=== PATIENT | female | born 1965 | race African-American/Black ===

== ENCOUNTER 2016-09-11 16:53 | Emergency (ER) | payer OTHER ==
--- NOTE | 2016-09-11 18:41 | ER Document Report ---
ED Medical Screen (RME) - General Chief Complaint: Other Stated Complaint: DIZZINESS Time Seen by Provider: 09/11/16 18:37 Mode of Arrival: Wheelchair Information source: Patient TRAVEL OUTSIDE OF THE [place] IN LAST 30 DAYS: No - HPI Patient complains to provider of: weak Onset: This afternoon - pt .states she started feeling weak and "shaky" earlier today. Says this has happened before when her potassium got low - Related Data Allergies/Adverse Reactions: No Known Allergies Allergy (Verified 09/11/16 17:10) Past Medical History - Social History Chew tobacco use (# tins/day): No Frequency of alcohol use: None Drug Abuse: None - Past Medical History Cardiac Medical History: Reports: Hx Hypertension Renal/ Medical History: Denies: Hx Peritoneal Dialysis Musculoskeltal Medical History: Reports Hx Arthritis Surgical Hx: Negative - Immunizations Immunizations up to date: Yes Hx Diphtheria, Pertussis, Tetanus Vaccination: Yes Physical Exam - Vital signs Vitals: Temp Pulse Resp BP Pulse Ox 98.2 F 72 18 148/86 H 94 09/11/16 17:08 09/11/16 17:08 09/11/16 17:08 09/11/16 17:08 09/11/16 17:08 Course - Vital Signs Vital signs: Temp Pulse Resp BP Pulse Ox 98.2 F 72 18 148/86 H 94 09/11/16 17:08 09/11/16 17:08 09/11/16 17:08 09/11/16 17:08 09/11/16 17:08
--- NOTE | 2016-09-11 19:14 | ER Document Report ---
ED Dizziness/Weakness - General Chief Complaint: Other Stated Complaint: DIZZINESS Time Seen by Provider: 09/11/16 18:37 Mode of Arrival: Wheelchair Information source: Patient Notes: 50 yo obese, htn, arthritic knees (steroid shot 3 days ago, [facility] surgery), female c/o shaky, jittery, like something off in my body onset in the afternoon at 1 pm. Riding in vehicle on way home from the store. [place] funny when she woke up this am. Took potassium pill before coming to ER. No headache, ears popping earlier, no sore throat, no cough, no chest pain or SOB, no abd pain, no n/v/d. No rash. No travel outside [place]> Symptoms of "not being control of self" are decreased. Feels like she coud go homne if physical exam and labs are normal. Episode of 5 days vaginal bleeding in July after amenorrhea 17 months, will see Abram Lea next week about this, explained to her that she needs endometrial evaluation since post menopausal bleeding. pt Takes hydrochlorothiazide. TRAVEL OUTSIDE OF THE [place] IN LAST 30 DAYS: No - Related Data Allergies/Adverse Reactions: No Known Allergies Allergy (Verified 09/11/16 17:10) Past Medical History - General Information source: Patient - Social History Smoking Status: Never Smoker Chew tobacco use (# tins/day): No Frequency of alcohol use: None Drug Abuse: None Family History: Reviewed & Not Pertinent Patient has suicidal ideation: No Patient has homicidal ideation: No - Past Medical History Cardiac Medical History: Reports: Hx Hypertension Renal/ Medical History: Denies: Hx Peritoneal Dialysis Musculoskeltal Medical History: Reports Hx Arthritis Surgical Hx: Negative - Immunizations Immunizations up to date: Yes Hx Diphtheria, Pertussis, Tetanus Vaccination: Yes Review of Systems - Review of Systems Constitutional: See HPI EENT: No symptoms reported Cardiovascular: No symptoms reported Respiratory: No symptoms reported Gastrointestinal: No symptoms reported Genitourinary: No symptoms reported Female Genitourinary: No symptoms reported Musculoskeletal: No symptoms reported Skin: No symptoms reported Hematologic/Lymphatic: No symptoms reported Neurological/Psychological: See HPI Physical Exam - Vital signs Vitals: Temp Pulse Resp BP Pulse Ox 98.2 F 72 18 148/86 H 94 09/11/16 17:08 09/11/16 17:08 09/11/16 17:08 09/11/16 17:08 09/11/16 17:08 Interpretation: Normal, Hypoxic - General General appearance: Appears well, Alert Notes: Obese - HEENT Head: Normocephalic, Atraumatic Eyes: Normal Conjunctiva: Normal Pupils: PERRL Mucous membranes: Normal Pharynx: Normal Neck: Supple. No: Lymphadenopathy - Respiratory Respiratory status: No respiratory distress Chest status: Nontender Breath sounds: Normal Chest palpation: Normal - Cardiovascular Rhythm: Regular Heart sounds: Normal auscultation Murmur: No - Abdominal Inspection: Normal Distension: No distension Bowel sounds: Normal Tenderness: Nontender. No: Tender Organomegaly: No organomegaly - Back Back: Normal, Nontender. No: CVA tenderness - Extremities General upper extremity: Normal inspection, Nontender, Normal color, Normal ROM , Normal temperature General lower extremity: Normal inspection, Nontender, Normal color, Normal ROM , Normal temperature, Normal weight bearing. No: Donald's sign - Neurological Neuro grossly intact: Yes Cognition: Normal Orientation: AAOx4 Mike Coma Scale Eye Opening: Spontaneous Gilman Coma Scale Verbal: Oriented Gilman Coma Scale Motor: Obeys Commands Mike Coma Scale Total: 15 Speech: Normal Motor strength normal: LUE, RUE, LLE, RLE Sensory: Normal - Psychological Associated symptoms: Normal affect, Normal mood - Skin Skin Temperature: Warm Skin Moisture: Dry Skin Color: Normal Skin irregularity: negative: Rash Course - Re-evaluation Re-evalutation: 09/11/16 20:08 urine trace bacteria and leukocytes, ekg NSR evaluated by dr lima , Potassium is 3.5 chloride is 96. Patient is to eat a banana a day she stopped. Her to follow-up with her doctor this week and to be checked for the postmenopausal bleeding that she had in July. She more than likely will need an endometrial biopsy. Copies of lab were given to her. - Vital Signs Vital signs: Temp Pulse Resp BP Pulse Ox 98.2 F 72 18 148/86 H 94 09/11/16 17:08 09/11/16 17:08 09/11/16 17:08 09/11/16 17:08 09/11/16 17:08 - Laboratory Result Diagrams: 09/11/16 19:00 09/11/16 19:00 Laboratory results interpreted by me: 09/11/16 09/11/1617 19:00 19:00 19:00 WBC 11.9 H MCH 26.9 L MCHC 31.1 L RDW 14.9 H Sodium 145.3 H Potassium 3.5 L Chloride 96 L Carbon Dioxide 36 H Urine Protein 30 H Urine Urobilinogen 2.0 H Ur Leukocyte Esterase TRACE H Discharge - Discharge Clinical Impression: Postmenopausal bleeding July 2016, Mildly low potassium and chloride Condition: Good Disposition: HOME, SELF-CARE Instructions: Hypokalemia ([facility]), Dizziness ([facility]) Additional Instructions: eat a bannana daily call and schedule appt with Abram Lea for recheck and endometrial evaluation of post menopausal bleeding to er if worse copy of labwork given to you Referrals: ABRAM LEA PA-C [Primary Care Provider] - 09/13/16
[2016-09-11 19:19] LABS: ABSOLUTE BASOPHILS # (AUTO) 0.1 10^3/uL (0.0-0.2); ABSOLUTE EOSINOPHILS # (AUTO) 0.3 10^3/uL (0.0-0.6); ABSOLUTE LYMPHOCYTES (AUTO) 3.6 10^3/uL (0.5-4.7); ABSOLUTE MONOCYTES (AUTO) 0.9 10^3/uL (0.1-1.4); BASOPHILS % (AUTO) 0.8 % (0-2); EOSINOPHILS % (AUTO) 2.1 % (0-6); HEMATOCRIT 44.5 % (36.0-47.0); HEMOGLOBIN 13.8 g/dL (12.0-15.5); HGB HCT DIFFERENCE -3.1; LYMPHOCYTES % (AUTO) 30.3 % (13-45); MEAN CORPUSCULAR HEMOGLOBIN 26.9 pg (27.0-33.4); MEAN CORPUSCULAR HGB CONC 31.1 g/dL (32.0-36.0); MEAN CORPUSCULAR VOLUME 86 fl (80-97); MONOCYTES % (AUTO) 7.6 % (3-13); RED BLOOD COUNT 5.15 10^6/uL (3.72-5.28); RED CELL DISTRIBUTION WIDTH 14.9 % (11.5-14.0); SEGMENTED NEUTROPHILS % (AUTO) 59.2 % (42-78); WHITE BLOOD COUNT 11.9 10^3/uL (4.0-10.5)
[2016-09-11 19:32] LABS: ALANINE AMINOTRANSFERASE 37 U/L (9-52); ALBUMIN 4.2 g/dL (3.5-5.0); ALKALINE PHOSPHATASE 124 U/L (38-126); ANION GAP 13 (5-19); ASPARTATE AMINO TRANSFERASE 17 U/L (14-36); BILIRUBIN,DIRECT 0.3 mg/dL (0.0-0.4); BILIRUBIN,TOTAL 0.4 mg/dL (0.2-1.3); BLOOD UREA NITROGEN 15 mg/dL (7-20); CALCIUM 9.6 mg/dL (8.4-10.2); CARBON DIOXIDE 36 mmol/L (22-30); CHLORIDE 96 mmol/L (98-107); CREATININE RESULT 0.91 mg/dL (0.52-1.25); GLUCOSE 84 mg/dL (75-110); POTASSIUM 3.5 mmol/L (3.6-5.0); SODIUM 145.3 mmol/L (137-145); TOTAL PROTEIN 7.4 g/dL (6.3-8.2)
[2016-09-11 19:49] LABS: APPEARANCE,URINE SLIGHTLY-CLOUDY; BILIRUBIN,URINE NEGATIVE (NEGATIVE); GLUCOSE, URINE NEGATIVE (NEGATIVE); KETONES,URINE NEGATIVE (NEGATIVE); LEUKOCYTE ESTERASE,URINE TRACE (NEGATIVE); NITRITE,URINE NEGATIVE (NEGATIVE); PROTEIN,URINE 30 mg/dL (NEGATIVE); URINE SPECIFIC GRAVITY 1.026
[2016-09-11 20:35] VITALS: BP 141/82
--- NOTE | 2016-09-12 09:25 | EKG REPORT ---
SEVERITY:- BORDERLINE ECG - SINUS RHYTHM BORDERLINE T WAVE ABNORMALITIES : Confirmed by: Yvette Ness 12-Sep-2016 09:24:02
== END 2016-09-11 20:35 | disposition home or self-care (01) ==
LOC: ER 16:53
DX: E87.6 Hypokalemia (principal); R42 Dizziness and giddiness; Z79.899 Other long term (current) drug therapy
CPT/HCPCS: 36415; 80053; 81001; 85025; 87086; 93005; 93010; 99284

== ENCOUNTER → 2016-12-10 | Outpatient (CLI) | payer OTHER ==
--- NOTE | 2016-12-10 11:57 | WOMENS IMAGING REPORT ---
EXAM DESCRIPTION: BILAT SCREENING MAMMO W/CAD COMPLETED DATE/TIME: 12/10/2016 10:37 am REASON FOR STUDY: SCREENING MAMMO Z12.31 ENCNTR SCREEN MAMMOGRAM FOR MALIGNANT NEOPLASM OF [place] COMPARISON: 11/12/2015 TECHNIQUE: Standard craniocaudal and mediolateral oblique views of each breast recorded using Your.MDa l acquisition. LIMITATIONS: None. FINDINGS: Findings present which are benign by mammographic criteria. No suspicious masses, calcifi cations or architectural distortion. Pertinent benign findings: Postsurgical changes from breast reduction. Benign coarse dense dystrophi c calcifications on the right. Read with the assistance of CAD. .[facility] - R2 Cenova Version 1.3 .[facility] - R2 Cenova Version 1.3 .[facility] - R2 Cenova Version 2.4 .[facility] - R2 Cenova Version 2.4 .[facility] - R2 Duty Manager Version 9.2 Benign mammographic findings may include one or more of the following: Smooth masses, popcorn/rim/co arse calcifications, asymmetries, post-procedure changes, and lesions with long-standing stability. IMPRESSION: BENIGN MAMMOGRAPHIC FINDINGS. BIRADS 2 BREAST DENSITY: a. The breasts are almost entirely fatty. BIRAD: 2 BENIGN FINDING(S) RECOMMENDATION: ROUTINE SCREENING COMMENT: The patient has been notified of the results by letter per SA requirements. Additional no tification policies are in place for contacting patient with suspicious or incomplete findings. Quality ID #225: The [employer] recommends an annual screening mammogram for women aged 40 years or over. This facility utilizes a reminder system to ensure that all patients receive reminder letters, and/or direct phone calls for appointments. This includes reminders for routine scr eening mammograms, diagnostic mammograms, or other Breast Imaging Interventions when appropriate. Th is patient will be placed in the appropriate reminder system. The [employer] (ACR) has developed recommendations for screening MRI of the breast s in certain patient populations, to be used in conjunction with mammography. Breast MRI surveillanc e may be appropriate for women with more than 20% lifetime risk of developing breast cancer as deter mined by genetic testing, significant family history of the disease, or history of mantle radiation f or Hodgkins Disease. ACR Practice Guidelines 2008. TECHNICAL DOCUMENTATION: FINDING NUMBER: (1) ASSESSMENT: (1) JOB ID: [id number] [employer]- All Rights Reserved
== END ==
LOC: WI 10:23
PROVIDERS: ATTEND Obstetrics & Gynecology
DX: Z12.31 Encounter for screening mammogram for malignant neoplasm of breast (principal)
CPT/HCPCS: 77067; G0202

== ENCOUNTER 2017-07-06 07:45 | Day surgery (SDC) | payer OTHER ==
[~2017-07-06 07:45] MED LIST: DIPHENHYDRAMINE HCL 50 MG/ML VIAL ONE; EPINEPHRINE INJ 1 MG/10 ML DISP.SYRIN ONE; FLUMAZENIL INJ 0.5 MG/5 ML VIAL ONE; GLUCAGON,HUMAN RECOMB 1 MG INJ ONE; NALOXONE HCL INJ/PF 0.4 MG/1 ML SDV ONE; ONDANSETRON HCL INJ/PF 4 MG/2 ML SDV ONE
[2017-07-06] MEDS: MIDAZOLAM 2 MG/2 ML INJ ONE ×2 (08:08→08:12)
[2017-07-06] MEDS: FENTANYL CITRATE INJ/PF 100 MCG/2 ML AMPUL ONE ×2 (08:10→08:14)
--- NOTE | 2017-07-06 08:55 | Operative Report ---
Operative Report DATE OF SURGERY: 07/06/17 Operative Report: The risks, benefits and alternatives are discussed with the patient in detail Time out is called conscious sedation medications are provided the patient's esophagus, stomach and duodenum are examined retroflexion is performed PREOPERATIVE DIAGNOSIS: dysphagia POSTOPERATIVE DIAGNOSIS: schatzki's ring, s/p breakage. gastritis. Biopsy obtained OPERATION: EGD with biopsy SURGEON: CRISTAL ALSTON ANESTHESIA: Moderate Sedation - 4mg of Versed, 100mcg of Fentanyl. conscious sedation monitoring time is 30mins TISSUE REMOVED OR ALTERED: as noted above COMPLICATIONS: none ESTIMATED BLOOD LOSS: none INTRAOPERATIVE FINDINGS: as noted above PROCEDURE: patient tolerated the procedure well no post procedure complications patient is discharged in good condition Discharge date: 07/06/17 discharge activity: as noted will follow up in 2-3 weeks wait on pathology patient to call office or go to ED if any other issues
[2017-07-06 09:16] VITALS: BP 124/61
== END 2017-07-06 09:25 | disposition home or self-care (01) ==
LOC: END 07:45
PROVIDERS: ATTEND Internal Medicine Gastroenterology
DX: K22.2 Esophageal obstruction (principal); K29.50 Unspecified chronic gastritis without bleeding; K20.9 Esophagitis, unspecified; I10 Essential (primary) hypertension; E78.5 Hyperlipidemia, unspecified; F41.9 Anxiety disorder, unspecified; E66.01 Morbid (severe) obesity due to excess calories; Z68.43 Body mass index [BMI] 50.0-59.9, adult; Z79.1 Long term (current) use of non-steroidal anti-inflammatories (NSAID); Z79.51 Long term (current) use of inhaled steroids
CPT/HCPCS: 43239; 88305 ×2; J2250; J3010; J0171; J1200; J1610; J2310; J2405; J3490

== ENCOUNTER 2017-10-02 11:41 | Emergency (ER) | payer OTHER ==
[2017-10-02] MEDS ORDERED: ASPIRIN 81 MG TABLET, CHEWABLE PO ONE (12:13)
[2017-10-02] MEDS ORDERED: LORAZEPAM INJ 2 MG/1 ML VIAL IV ONE (12:14)
--- NOTE | 2017-10-02 12:18 | ER Document Report ---
ED Cardiac - General Chief Complaint: Chest Pain Stated Complaint: CHEST PAIN Time Seen by Provider: 10/02/17 12:08 Mode of Arrival: Ambulatory Information source: Patient Notes: 51-year-old female presents emergency department with complaints of palpitations. Patient states that these have been ongoing for the last day. She states that she does have a history of anxiety and acid reflux. Patient states that she took her acid reflux medication last night and had some relief of symptoms. She states that she when she woke up today she felt better. She states that within 2 hours of being awake she began having palpitations again. Patient did not take any aspirin or any other medications prior to arrival today. Patient states that her symptoms have been constant for the last 3 hours. Patient denies any chest pain, shortness of breath, nausea, vomiting, diaphoresis. Patient states that she does feel anxious with the palpitations. She states that she has been under a lot of stress as she is trying to close on a new home. Patient states that she does have a history of hypertension but denies a history of diabetes, high cholesterol, coronary artery disease, family history of coronary artery disease. Patient also denies any recent travel, recent surgery, history of DVT or PE, hormone use, history of malignancy. TRAVEL OUTSIDE OF THE [place] IN LAST 30 DAYS: No - HPI Patient complains to provider of: Palpitations Was the onset of pain: Gradual Chest pain location: Substernal Quality of pain: None Chest pain radiation location: None Severity now: None Severity at worst: Mild Pain level currently: Denies Chest pain precipitating factors: At Rest Cardiac risk factors: Hypertension Positive cardiac history: No Associated symptoms: None Exacerbated by: Denies Relieved by: Nothing Similar symptoms previously: Yes Recently seen / treated by doctor: No - Related Data Allergies/Adverse Reactions: No Known Allergies Allergy (Verified 07/05/17 14:30) Past Medical History - Social History Smoking Status: Never Smoker Family History: Reviewed & Not Pertinent - Past Medical History Cardiac Medical History: Reports: Hx Hypertension Denies: Hx Coronary Artery Disease, Hx Heart Attack Pulmonary Medical History: Denies: Hx Asthma, Hx Bronchitis, Hx COPD, Hx Pneumonia Neurological Medical History: Denies: Hx Cerebrovascular Accident, Hx Seizures Renal/ Medical History: Denies: Hx Peritoneal Dialysis Musculoskeltal Medical History: Reports Hx Arthritis Past Surgical History: Denies: Hx Hysterectomy - Immunizations Immunizations up to date: Yes Hx Diphtheria, Pertussis, Tetanus Vaccination: Yes Review of Systems - Review of Systems Constitutional: No symptoms reported EENT: No symptoms reported Cardiovascular: Palpitations Respiratory: No symptoms reported Gastrointestinal: No symptoms reported Genitourinary: No symptoms reported Musculoskeletal: No symptoms reported Skin: No symptoms reported Neurological/Psychological: No symptoms reported -: Yes All other systems reviewed and negative Physical Exam - Vital signs Vitals: Resp Pulse Ox 17 97 10/02/17 12:00 10/02/17 12:00 Interpretation: Normal - Notes Notes: PHYSICAL EXAMINATION: GENERAL: Well-appearing, well-nourished and in no acute distress. HEAD: Atraumatic, normocephalic. EYES: Pupils equal round and reactive to light, extraocular movements intact, conjunctiva are normal. ENT: Nares patent, oropharynx clear without exudates. Moist mucous membranes. NECK: Normal range of motion, supple without lymphadenopathy LUNGS: Breath sounds clear to auscultation bilaterally and equal. No wheezes rales or rhonchi. HEART: Regular rate and rhythm without murmurs ABDOMEN: Soft, nontender, nondistended abdomen. No guarding, no rebound. No masses appreciated. Female : deferred Musculoskeletal: Normal range of motion, no pitting or edema. No cyanosis. NEUROLOGICAL: Cranial nerves grossly intact. Normal speech, normal gait. Normal sensory, motor exams PSYCH: Normal mood, normal affect. SKIN: Warm, Dry, normal turgor, no rashes or lesions noted. Course - Re-evaluation Re-evalutation: 10/02/17 16:19 Labs and imaging obtained. 2 sets of cardiac enzymes and CTA chest done. No acute process identified. Patient states that her symptoms improved with the Ativan. I will discharge the patient home. Patient instructed to follow-up with her primary care physician this week, to take [id number] medication as needed for symptom relief, and to return to the emergency department for worsening symptoms. Patient is agreeable with plan of care. - Vital Signs Vital signs: Temp Pulse Resp BP Pulse Ox 24 H 134/82 H 100 10/02/17 14:26 10/02/17 14:26 10/02/17 14:26 - Laboratory Result Diagrams: 10/02/17 12:33 10/02/17 12:33 Laboratory results interpreted by me: 10/02/17 10/02/17 10/02/17 12:33 12:33 12:33 RDW 14.4 H D-Dimer 0.99 H Sodium 145.2 H Carbon Dioxide 33 H - EKG Interpretation by Me Additional EKG results interpreted by me: 10/02/17 14:37 Ventricular rate 77, Perative 188, QRS duration 90, QTc 356, sinus rhythm, no ischemic changes. Discharge - Discharge Clinical Impression: Heart palpitations Condition: Good Disposition: HOME, SELF-CARE Instructions: Palpitations (Irregular or Rapid Heartrate) ([facility]) Referrals: ABRAM LEA PA-C [Primary Care Provider] - Follow up as needed
--- NOTE | 2017-10-02 12:35 | RADIOLOGY REPORT (SQ) ---
EXAM DESCRIPTION: CHEST SINGLE VIEW COMPLETED DATE/TIME: 10/02/2017 12:23 pm REASON FOR STUDY: chest pain COMPARISON: None. EXAM PARAMETERS: NUMBER OF VIEWS: One view. TECHNIQUE: Single frontal radiographic view of the chest acquired. RADIATION DOSE: NA LIMITATIONS: None. FINDINGS: LUNGS AND PLEURA: No opacities, masses or pneumothorax. No pleural effusion. MEDIASTINUM AND HILAR STRUCTURES: No masses. Contour normal. HEART AND VASCULAR STRUCTURES: Heart normal in size. Normal vasculature. BONES: No acute findings. HARDWARE: None in the chest. OTHER: No other significant finding. IMPRESSION: NO ACUTE RADIOGRAPHIC FINDING IN THE CHEST. TECHNICAL DOCUMENTATION: JOB ID: [id number] [employer]- All Rights Reserved Reading location - IP/workstation name: [email or web address]
[2017-10-02 12:44] LABS: ABSOLUTE BASOPHILS # (AUTO) 0.1 10^3/uL (0.0-0.2); ABSOLUTE EOSINOPHILS # (AUTO) 0.2 10^3/uL (0.0-0.6); ABSOLUTE LYMPHOCYTES (AUTO) 2.7 10^3/uL (0.5-4.7); ABSOLUTE MONOCYTES (AUTO) 0.8 10^3/uL (0.1-1.4); BASOPHILS % (AUTO) 0.7 % (0-2); HEMATOCRIT 39.6 % (36.0-47.0); HEMOGLOBIN 13.2 g/dL (12.0-15.5); LYMPHOCYTES % (AUTO) 27.4 % (13-45); MEAN CORPUSCULAR HEMOGLOBIN 28.7 pg (27.0-33.4); MEAN CORPUSCULAR HGB CONC 33.4 g/dL (32.0-36.0); MEAN CORPUSCULAR VOLUME 86 fl (80-97); MONOCYTES % (AUTO) 7.9 % (3-13); PLATELET COUNT 226 10^3/uL (150-450); RED BLOOD COUNT 4.61 10^6/uL (3.72-5.28); RED CELL DISTRIBUTION WIDTH 14.4 % (11.5-14.0); TOTAL CELLS COUNTED % (AUTO) 100 %; WHITE BLOOD COUNT 9.7 10^3/uL (4.0-10.5)
[2017-10-02 13:03] LABS: ALANINE AMINOTRANSFERASE 22 U/L (9-52); ALBUMIN 3.9 g/dL (3.5-5.0); ALKALINE PHOSPHATASE 96 U/L (38-126); ANION GAP 10 (5-19); ASPARTATE AMINO TRANSFERASE 16 U/L (14-36); BILIRUBIN,DIRECT 0.2 mg/dL (0.0-0.4); BILIRUBIN,TOTAL 0.5 mg/dL (0.2-1.3); BLOOD UREA NITROGEN 13 mg/dL (7-20); CALCIUM 9.2 mg/dL (8.4-10.2); CARBON DIOXIDE 33 mmol/L (22-30); CHLORIDE 102 mmol/L (98-107); CREATINE KINASE 93 U/L (30-135); GLUCOSE 102 mg/dL (75-110); POTASSIUM 3.6 mmol/L (3.6-5.0); SODIUM 145.2 mmol/L (137-145); TOTAL PROTEIN 6.8 g/dL (6.3-8.2)
[2017-10-02 13:15] LABS: CREATINE KINASE MB 0.62 ng/mL (<4.55)
[2017-10-02 13:17] LABS: TROPONIN I < 0.012 ng/mL
--- NOTE | 2017-10-02 16:10 | RADIOLOGY REPORT (SQ) ---
EXAM DESCRIPTION: CTA CHEST COMPLETED DATE/TIME: 10/02/2017 3:45 pm REASON FOR STUDY: palpitiations, COMPARISON: Radiographs. TECHNIQUE: CT scan of the chest performed using helical scanning technique with dynamic intravenous contrast injection. Images reviewed with lung, soft tissue and bone windows. Reconstructed coronal and sagittal MPR images reviewed. Additional 3 dimensional post-processing performed to develop Maximal Intensity Projection images (PA P). All images stored on PACS. All CT scanners at this facility use dose modulation, iterative reconstruction, and/or weight based d osing when appropriate to reduce radiation dose to as low as reasonably achievable (ALARA). [facility]: Dose Right [facility]: CareDose [facility]: Dose Right [facility]: Teradose 4D [facility]: HashCube CONTRAST TYPE AND DOSE: contrast/concentration: Isovue 370.00 mg/ml; Total Contrast Delivered: 86.0 ml; Total Saline Delivered: 97.0 ml RENAL FUNCTION: GFR > 60. RADIATION DOSE: CT Rad equipment meets quality standard of care and radiation dose reduction techniq ues were employed. CTDIvol: 41.1 - 41.3 mGy. DLP: 1503 mGy-cm. . LIMITATIONS: Contrast bolus sub optimal. Body habitus. Motion. FINDINGS: LUNGS AND PLEURA: Elevation right hemidiaphragm. Lungs clear. AORTA AND GREAT VESSELS: Limited contrast bolus. No gross dissection or aneurysm. HEART: No pericardial effusion. No significant coronary artery calcifications. PULMONARY ARTERIES: Limited contrast bolus. Limiting peripheral motion artifact. No gross central c lot. HILAR AND MEDIASTINAL STRUCTURES: No identified masses or abnormal nodes. HARDWARE: None in the chest. UPPER ABDOMEN: No significant findings. Limited exam. THYROID AND OTHER SOFT TISSUES: Thyroid nodules. Normal thyroid size. BONES: No acute or significant finding. 3D MIPS: Confirm above findings. OTHER: No other significant finding. IMPRESSION: Limited study. No gross pulmonary embolus or acute abnormality. COMMENT: Quality ID # [id number]: Final reports with documentation of one or more dose reduction techniques (e.g., Automated exposure control, adjustment of the mA and/or kV according to patient size, use of iterative reconstruction technique) TECHNICAL DOCUMENTATION: JOB ID: [id number] [employer]- All Rights Reserved Reading location - IP/workstation name: [email or web address]
[2017-10-02 16:30] VITALS: BP 151/97
--- NOTE | 2017-10-02 21:18 | EKG REPORT ---
SEVERITY:- BORDERLINE ECG - SINUS RHYTHM BORDERLINE T ABNORMALITIES, INFERIOR LEADS : Confirmed by: Yvette Ness 02-Oct-2017 21:17:57
--- NOTE | 2017-10-02 21:18 | EKG REPORT ---
SEVERITY:- BORDERLINE ECG - SINUS RHYTHM BORDERLINE T ABNORMALITIES, DIFFUSE LEADS : Confirmed by: Yvette Ness 02-Oct-2017 21:17:48
== END 2017-10-02 16:43 | disposition home or self-care (01) ==
LOC: ER 11:41
DX: R00.2 Palpitations (principal); R07.9 Chest pain, unspecified; F41.9 Anxiety disorder, unspecified; K21.9 Gastro-esophageal reflux disease without esophagitis; Z79.899 Other long term (current) drug therapy; I10 Essential (primary) hypertension
CPT/HCPCS: 93005; 99285; 96374; 36415; 82553; 82550; 85025; 80053; 84484; 85379; 71045; 71275; 93010; J2060

== ENCOUNTER 2017-12-04 12:42 | Emergency (ER) | payer OTHER ==
[2017-12-04] MEDS ORDERED: MUPIROCIN 2% OINTMENT 22 GM TP ONE (13:39)
[2017-12-04] MEDS ORDERED: SULFAMETHOXAZOLE/TRIMETHOPRIM 800-160 MG TABLET PO ONE (13:39)
[2017-12-04] MEDS ORDERED: CEPHALEXIN 500 MG CAPSULE PO ONE (13:39)
--- NOTE | 2017-12-04 13:45 | ER Document Report ---
HPI - HPI Patient complains to provider of: draining keloid Onset: Other - several days Pain Level: 4 Context: 51-year-old female complaining of her mid chest keloid draining for several days. Is gotten larger and more tender as usual. The drainage crusty. Associated Symptoms: None Exacerbated by: Denies Relieved by: Denies - ROS ROS below otherwise negative: Yes Systems Reviewed and Negative: Yes All other systems reviewed and negative Past Medical History - General Information source: Patient - Social History Smoking Status: Never Smoker Lives with: Spouse/Significant other Family History: Reviewed & Not Pertinent - Past Medical History Cardiac Medical History: Reports: Hx Hypertension Musculoskeletal Medical History: Reports Hx Arthritis Surgical Hx: Negative - Immunizations Immunizations up to date: Yes Hx Diphtheria, Pertussis, Tetanus Vaccination: Yes Vertical Provider Document - CONSTITUTIONAL Agree With Documented VS: Yes Exam Limitations: No Limitations - INFECTION CONTROL TRAVEL OUTSIDE OF THE [place] IN LAST 30 DAYS: No - DERM Notes: Crusty honey colored crust lateral aspect of the mid chest sternal keloid. The superior Portion of the keloid is tender. Course - Re-evaluation Re-evalutation: 12/04/17 13:43 Patient does not want me to open the drainage location at this time. She wants to try antibiotics and she will see Abram goldstein tomorrow for referral. I told her she can see the plastic surgeon or winding operator about this. She understands that the wound culture is pending. She understands the reasons to come back to the emergency room. No history of MRSA 12/04/17 13:44 - Vital Signs Vital signs: Temp Pulse Resp BP Pulse Ox 98.5 F 81 16 140/74 H 12/04/17 13:07 12/04/17 13:07 12/04/17 13:07 12/04/17 13:07 Discharge - Discharge Clinical Impression: draining chest keloid Condition: Good Disposition: HOME, SELF-CARE Instructions: Acetaminophen, Bactroban Ointment ([facility]), Cephalexin ([facility]), Infections ([facility]), Trimethoprim-Sulfa ([facility]) Additional Instructions: bactroban small amount three times per day Tylenol up to 4000 mg per day for pain Keflex as an antibiotic 4 times a day Septra twice a day as antibiotic See Abram goldstein tomorrow for recheck and referral to dermatology or plastic surgeon Return to the emergency room for increased size pain or drainage or fever Wound culture is pending Prescriptions: Cephalexin Monohydrate [Keflex 500 mg Capsule] 500 mg PO QID #28 capsule Sulfamethoxazole/Trimethoprim [Sulfamethoxazole-Tmp Ds Tablet] 1 each PO BID # 14 tablet Referrals: ABRAM GOLDSTEIN PA-C [Primary Care Provider] - Follow up tomorrow OSVALDO JACK MD [ACTIVE STAFF] - Follow up as needed ÁNGEL DICK DO [ACTIVE STAFF] - Follow up as needed
[2017-12-04 14:16] VITALS: BP 110/69
== END 2017-12-04 14:18 | disposition home or self-care (01) ==
LOC: ER 12:42
DX: L91.0 Hypertrophic scar (principal); I10 Essential (primary) hypertension
CPT/HCPCS: 99283; 87070; 87205; 87077; 87186; J3490

== ENCOUNTER 2018-02-28 10:27 | Emergency (ER) | payer OTHER ==
[2018-02-28 10:32] VITALS: BP 148/101
[2018-02-28] MEDS ORDERED: LIDOCAINE 1% INJ (10 MG/ML) 10 ML MDV INJ ONE (10:47)
[2018-02-28] MEDS ORDERED: METHYLPREDNISOLONE INJ 40 MG/1 ML SDV IM ONE (10:47)
--- NOTE | 2018-02-28 10:48 | ER Document Report ---
ED General - General Chief Complaint: Shoulder Pain Stated Complaint: LEFT SHOULDER PAIN Time Seen by Provider: 02/28/18 10:38 Notes: Patient is a 52-year-old female that presents to the emergency department for chief complaint of left neck pain. Patient states that this pain started about 1 week ago, she did go to see her primary care physician this past Tuesday, was prescribed Flexeril and meloxicam, without improvement of her symptoms, she tried a heating pad which did give some relief, but her pain persisted so she decided to come to the emergency department to have this evaluated. She denies any numbness or tingling or weakness associated with this. It is worse with some ranges of motion of her left shoulder. She denies having any associated chest pain, shortness of breath, nausea, vomiting or abdominal pain. She currently rates the pain as a 4 out of 10, and worse with ranges of motion of the shoulder. Past Medical History: Hypertension Past Surgical History: Denies pertinent major surgical history Social History: Denies tobacco, alcohol or illicit drug use Family History: Reviewed and noncontributory for presenting illness Allergies: Reviewed, see documented allergy list. REVIEW OF SYSTEMS: Other than noted above, the 12 point review of systems was reviewed with the patient and were negative, all pertinent findings are included in the HPI. PHYSICAL EXAMINATION: Vital signs reviewed, nursing noted reviewed. GENERAL: Well-appearing, well-nourished and in no acute distress. HEAD: Atraumatic, normocephalic. EYES: Eyes appear normal, extraocular movements intact, sclera anicteric, conjunctiva are normal. ENT: nares patent, oropharynx clear without exudates. Moist mucous membranes. NECK: Normal range of motion, supple without lymphadenopathy, there is point tenderness over the mid to lateral posterior trapezius, no paraspinal or midline tenderness palpated. LUNGS: Breath sounds clear to auscultation bilaterally and equal. No wheezes rales or rhonchi. HEART: Regular rate and rhythm without murmurs ABDOMEN: Soft, nontender, normoactive bowel sounds. No rebound, guarding, or rigidity. No masses appreciated. EXTREMITIES: Nontender, good range of motion, no pitting or edema. Negative empty can, Valle maneuver of the left shoulder, excellent active and passive range of motion of the shoulder, and internal, external, abduction and abduction , flexion and extension. Does seem to elicit some pain with patient's having her discomfort that she described it by her left lateral neck. NEUROLOGICAL: No focal neurological deficits. Moves all extremities spontaneously Motor and sensory grossly intact on exam. PSYCH: Normal mood, normal affect. SKIN: Warm, Dry, normal turgor, no rashes or lesions noted on exposed skin TRAVEL OUTSIDE OF THE [place] IN LAST 30 DAYS: No - Related Data Allergies/Adverse Reactions: No Known Allergies Allergy (Verified 02/28/18 10:34) Past Medical History - Social History Smoking Status: Never Smoker Chew tobacco use (# tins/day): No Frequency of alcohol use: None Drug Abuse: None Family History: Reviewed & Not Pertinent Patient has suicidal ideation: No Patient has homicidal ideation: No - Past Medical History Cardiac Medical History: Reports: Hx Hypertension Denies: Hx Coronary Artery Disease, Hx Heart Attack Pulmonary Medical History: Denies: Hx Asthma, Hx Bronchitis, Hx COPD, Hx Pneumonia Neurological Medical History: Denies: Hx Cerebrovascular Accident, Hx Seizures Renal/ Medical History: Denies: Hx Peritoneal Dialysis Musculoskeletal Medical History: Reports Hx Arthritis Past Surgical History: Denies: Hx Hysterectomy - Immunizations Immunizations up to date: Yes Hx Diphtheria, Pertussis, Tetanus Vaccination: Yes Physical Exam - Vital signs Vitals: Temp Pulse Resp BP Pulse Ox 98.2 F 82 16 148/101 H 98 02/28/18 10:28 02/28/18 10:28 02/28/18 10:28 02/28/18 10:28 02/28/18 10:28 Course - Re-evaluation Re-evalutation: Patient seen and examined, vital signs reviewed, overall the patient appears well on exam, her shoulder exam was essentially unremarkable, good range of motion with passive and active range of motion, she did have particular tenderness over a trigger point, over the mid posterior trapezius, on the left, which is reproducible for the pain that she has been having. The rest of her exam was grossly unremarkable. PROCEDURE: Left lateral neck trigger point injection Indication: Trigger point tenderness Risks and benefits of the medications of procedure were described to the patient , verbal consent obtained Using a mixture of 1 mL of 1% lidocaine, and 40 mg of Solu-Medrol, the skin was prepped with alcohol, and the mixture was injected into the patient's focal point of tenderness, patient tolerated well, adhesive bandage applied. No complications. 02/28/18 11:04 - Vital Signs Vital signs: Temp Pulse Resp BP Pulse Ox 98.2 F 82 16 148/101 H 98 02/28/18 10:28 02/28/18 10:28 02/28/18 10:28 02/28/18 10:28 02/28/18 10:28 Discharge - Discharge Clinical Impression: Neck pain on left side, Trigger point of neck Condition: Stable Disposition: HOME, SELF-CARE Instructions: Arm Pain, Nonspecific ([facility]), Trigger Point Injection ([facility]) Additional Instructions: You were given a trigger point injection today, with 40 mg of Solu-Medrol, and 1 mL of 1% lidocaine. Please follow-up with your primary care physician, continue to use a heating pad for 20 minutes on a 20 minutes off at least 3 times daily to help with your symptoms. Referrals: ABRAM LEA PA-C [Primary Care Provider] - Follow up in 3-5 days
== END 2018-02-28 11:01 | disposition home or self-care (01) ==
LOC: ER 10:27
DX: M54.2 Cervicalgia (principal); M25.512 Pain in left shoulder; I10 Essential (primary) hypertension
CPT/HCPCS: 99283; 96372; 20552; J2920

== ENCOUNTER 2019-03-18 21:21 | Emergency (ER) | payer OTHER ==
[2019-03-18] MEDS ORDERED: ASPIRIN 81 MG TABLET, CHEWABLE PO ONE (21:30)
--- NOTE | 2019-03-18 21:39 | ER Document Report ---
ED Medical Screen (RME) - General Chief Complaint: Chest Pain Stated Complaint: CHEST PAINS Time Seen by Provider: 03/18/19 21:30 Primary Care Provider: ABRAM LEA PA-C [Primary Care Provider] - Follow up as needed Mode of Arrival: Ambulatory Information source: Patient Notes: 53-year-old female presented to ED for complaint of chest pain about an hour. She states she thinks maybe now it was indigestion because it is getting better. She states it is in the epigastric/chest area. She states that she ate spicy noodles and little spicy chips and had Pepsi within 5 minutes she had sharp pains in the epigastric area. She states these pains stayed until she got to the parking lot and then they got better. Does have a history of reflux and high blood pressure she states she is on lisinopril and she did take her blood pressure medicine. She states she has had chest pain once before long time ago. Lungs clear to auscultation apical pulse is regular and she does have active bowel sounds. She states her chest pain is at a 1 or 2 now. States it was a real tight feeling now it is kind of a wearing off pain I have greeted and performed a rapid initial assessment of this patient. A comprehensive ED assessment and evaluation of the patient, analysis of test results and completion of medical decision making process will be conducted by an additional ED providers. TRAVEL OUTSIDE OF THE [place] IN LAST 30 DAYS: No - Related Data Allergies/Adverse Reactions: No Known Allergies Allergy (Verified 02/28/18 10:34) Past Medical History - Past Medical History Cardiac Medical History: Reports: Hx Hypertension Denies: Hx Coronary Artery Disease, Hx Heart Attack Pulmonary Medical History: Denies: Hx Asthma, Hx Bronchitis, Hx COPD, Hx Pneumonia Neurological Medical History: Denies: Hx Cerebrovascular Accident, Hx Seizures Renal/ Medical History: Denies: Hx Peritoneal Dialysis Musculoskeltal Medical History: Reports Hx Arthritis Past Surgical History: Denies: Hx Hysterectomy - Immunizations Immunizations up to date: Yes Hx Diphtheria, Pertussis, Tetanus Vaccination: Yes Doctor's Discharge - Discharge Referrals: ABRAM LEA PA-C [Primary Care Provider] - Follow up as needed
--- NOTE | 2019-03-18 22:20 | RADIOLOGY REPORT (SQ) ---
EXAM DESCRIPTION: XR CHEST 2 VIEWS COMPLETED DATE/TME: 03/18/2019 21:30 CLINICAL HISTORY: 53 years, Female, chest pain COMPARISON: Prior CT chest from 10/02/2017 NUMBER OF VIEWS: Two TECHNIQUE: Frontal and lateral radiograph are obtained LIMITATIONS: None. FINDINGS: Cardiac and mediastinal contours are normal in appearance. A few scattered nodular opacities project about the lungs on the lateral projection. It is uncertain whether these represent actual pulmonary nodules or multiple vessels en face as these are not corroborated on the frontal projection. Lungs are otherwise clear. No pleural effusion or pneumothorax. IMPRESSION: No acute disease within the chest. Focal nodular opacities projecting about the lungs on the lateral projection, not definitely corroborated on the frontal projection. Underlying pulmonary nodules are possibility. Correlation with nonemergent CT is recommended. copyright 2010 [employer]- All Rights Reserved
[2019-03-18 22:27] LABS: ABSOLUTE EOSINOPHILS # (AUTO) 0.3 10^3/uL (0.0-0.6); ABSOLUTE LYMPHOCYTES (AUTO) 2.9 10^3/uL (0.5-4.7); ABSOLUTE MONOCYTES (AUTO) 0.7 10^3/uL (0.1-1.4); ABSOLUTE NEUT (AUTO) 3.8 10^3/uL (1.7-8.2); BASOPHILS % (AUTO) 0.4 % (0-2); EOSINOPHILS % (AUTO) 3.9 % (0-6); HEMATOCRIT 41.6 % (36.0-47.0); HEMOGLOBIN 13.6 g/dL (12.0-15.5); LYMPHOCYTES % (AUTO) 37.6 % (13-45); MEAN CORPUSCULAR HEMOGLOBIN 28.2 pg (27.0-33.4); MEAN CORPUSCULAR HGB CONC 32.6 g/dL (32.0-36.0); MEAN CORPUSCULAR VOLUME 86 fl (80-97); MONOCYTES % (AUTO) 9.1 % (3-13); PLATELET COUNT 219 10^3/uL (150-450); RED BLOOD COUNT 4.81 10^6/uL (3.72-5.28); RED CELL DISTRIBUTION WIDTH 14.9 % (11.5-14.0); TOTAL CELLS COUNTED % (AUTO) 100 %; WHITE BLOOD COUNT 7.7 10^3/uL (4.0-10.5)
[2019-03-18 22:38] LABS: ALKALINE PHOSPHATASE 99 U/L (38-126); ANION GAP 7 (5-19); ASPARTATE AMINO TRANSFERASE 16 U/L (14-36); BILIRUBIN,DIRECT 0.1 mg/dL (0.0-0.4); BILIRUBIN,TOTAL 0.3 mg/dL (0.2-1.3); BLOOD UREA NITROGEN 13 mg/dL (7-20); CALCIUM 9.3 mg/dL (8.4-10.2); CARBON DIOXIDE 35 mmol/L (22-30); CHLORIDE 100 mmol/L (98-107); GLUCOSE 90 mg/dL (75-110); POTASSIUM 3.5 mmol/L (3.6-5.0)
--- NOTE | 2019-03-18 23:01 | ER Document Report ---
ED General - General Chief Complaint: Chest Pain Stated Complaint: CHEST PAINS Time Seen by Provider: 03/18/19 21:30 Primary Care Provider: ABRAM LEA PA-C [Primary Care Provider] - Follow up as needed Mode of Arrival: Ambulatory Notes: Ms. Palomo is a 53 yo f w/ PMH obesity, HTN, GERD presenting to the ED for epigastric/chest pain. She states that she ate spicy food on noodles as well as spicy chips and drink a soda. She developed severe pain and thought it could be her heart. Prior to leaving her home, she took Mylanta because initially she thought it was GERD but it continued to be quite severe. By time she arrived to the parking lot of the hospital emergency department, the pain had improved significantly. Upon evaluation, the patient states the pain is completely resolved. Patient denies any smoking history, family history of early cardiac , diabetes, hyperlipidemia or previous stents. Patient denies any dyspnea upon exertion. TRAVEL OUTSIDE OF THE [place] IN LAST 30 DAYS: No - Related Data Allergies/Adverse Reactions: No Known Allergies Allergy (Verified 02/28/18 10:34) Home Medications: Lisinopril. Amlodipine Past Medical History - General Information source: Patient - Social History Smoking Status: Never Smoker Family History: Reviewed & Not Pertinent Patient has suicidal ideation: No Patient has homicidal ideation: No - Past Medical History Cardiac Medical History: Reports: Hx Hypertension Denies: Hx Coronary Artery Disease, Hx Heart Attack Pulmonary Medical History: Denies: Hx Asthma, Hx Bronchitis, Hx COPD, Hx Pneumonia Neurological Medical History: Denies: Hx Cerebrovascular Accident, Hx Seizures Renal/ Medical History: Denies: Hx Peritoneal Dialysis Musculoskeletal Medical History: Reports Hx Arthritis Past Surgical History: Denies: Hx Hysterectomy - Immunizations Immunizations up to date: Yes Hx Diphtheria, Pertussis, Tetanus Vaccination: Yes Review of Systems - Review of Systems Constitutional: See HPI EENT: No symptoms reported Cardiovascular: See HPI Respiratory: See HPI Gastrointestinal: No symptoms reported Genitourinary: No symptoms reported Female Genitourinary: No symptoms reported Musculoskeletal: No symptoms reported Skin: No symptoms reported Hematologic/Lymphatic: No symptoms reported Neurological/Psychological: No symptoms reported Physical Exam - Vital signs Vitals: Temp Pulse Resp BP Pulse Ox 98.3 F 74 16 146/89 H 100 03/18/19 21:40 03/18/19 21:40 12/08/19 21:40 03/18/19 21:40 03/18/19 21:40 Interpretation: Hypertensive - General General appearance: Appears well, Alert - HEENT Head: Normocephalic, Atraumatic Eyes: Normal Pupils: PERRL - Respiratory Respiratory status: No respiratory distress Chest status: Nontender Breath sounds: Normal Chest palpation: Normal - Cardiovascular Rhythm: Regular Heart sounds: Normal auscultation Murmur: No - Abdominal Inspection: Normal Distension: No distension Bowel sounds: Normal Tenderness: Nontender. No: Guarding, Rebound Organomegaly: No organomegaly - Back Back: Normal, Nontender - Extremities General upper extremity: Normal inspection, Nontender, Normal color, Normal ROM, Normal temperature General lower extremity: Normal inspection, Nontender, Normal color, Normal ROM, Normal temperature, Normal weight bearing. No: Donald's sign - Neurological Neuro grossly intact: Yes Cognition: Normal Orientation: AAOx4 [place] Com[place] Scale Eye Opening: Spontaneous [place] Coma Scale Verbal: Oriented [place] Coma Scale Motor: Obeys Commands [place] Coma Scale Total: 15 Speech: Normal Motor strength normal: LUE, RUE, LLE, RLE Sensory: Normal - Psychological Associated symptoms: Normal affect, Normal mood - Skin Skin Temperature: Warm Skin Moisture: Dry Skin Color: Normal Course - Re-evaluation Re-evalutation: Patient is generally well-appearing and nontoxic. Initial vitals notable for mildly elevated blood pressure. EKG is nonischemic. Differential diagnosis includes GERD, anxiety, ACS (less likely), malignancy 03/19/19 00:27 Upon my evaluation, the patient's pain is completely resolved. Initial labs including CBC, troponin and CMP all within normal limits. EKG is nonischemic. However the patient's chest x-ray, the lateral shows evidence of pulmonary nodules. Given that the patient does not have any known history of nodules, radiology had recommended CT for further evaluation. 03/19/19 01:03 CT is negative for any pulmonary nodules. Plan to repeat troponin. If ne gative, patient will discharge with likely diagnosis of GERD. 03/19/19 01:39 Repeat troponin negative. Patient will be discharged with return precautions. Most likely this was GERD given the patient's consumption of multiple spicy foods in addition to the soda. Patient given written instructions to use acid environmental engineering technician such as famotidine or omeprazole regularly. - Vital Signs Vital signs: Temp Pulse Resp BP Pulse Ox 98.3 F 74 22 H 166/87 H 97 03/18/19 21:40 03/18/19 21:40 03/19/19 00:06 03/19/19 00:06 03/19/19 00:06 - Laboratory Result Diagrams: 03/18/19 21:55 03/18/19 21:55 Laboratory results interpreted by me: 03/18/19 03/18/19 03/18/19 21:55 21:55 21:55 RDW 14.9 H Potassium 3.5 L Carbon Dioxide 35 H Leukocyte Esterase Rfl SMALL H - EKG Interpretation by Me EKG shows normal: Sinus rhythm, [place], QRS Complexes, ST-T Waves Rate: Normal Rhythm: NSR Heart block present: 1st Degree When compared to previous EKG there are: No significant change Discharge - Discharge Clinical Impression: GERD (gastroesophageal reflux disease) Qualifiers: Esophagitis presence: with esophagitis Qualified Code(s): K21.0 - Gastro- esophageal reflux disease with esophagitis Condition: Good Disposition: HOME, SELF-CARE Instructions: Antacid Therapy ([facility]), Reflux Disease (GERD) ([facility]), Prilosec (Acid Pump Inhibitor) ([facility]) Additional Instructions: I would recommend that you start using acid reducing medication such as Prilosec or famotidine regularly. I would also recommend that you avoid spicy foods or foods high in acidity such as tomatoes, citrus products or tomato sauce. Fol low-up with your primary care doctor as needed. If you develop chest pain, shortness of breath, or any other concerning symptoms, return to the ED for further evaluation. Referrals: ABRAM LEA PA-C [Primary Care Provider] - Follow up as needed
--- NOTE | 2019-03-18 23:42 | EKG REPORT ---
SEVERITY:- BORDERLINE ECG - SINUS RHYTHM BORDERLINE T WAVE ABNORMALITIES : Confirmed by: Suki Rollins MD 18-Mar-2019 23:42:17
[2019-03-19 00:19] LABS: APPEARANCE,URINE CLEAR; BILIRUBIN,URINE NEGATIVE (NEGATIVE); COLOR,URINE YELLOW; GLUCOSE, URINE NEGATIVE (NEGATIVE); KETONES,URINE NEGATIVE (NEGATIVE); PROTEIN,URINE NEGATIVE (NEGATIVE); URINE SPECIFIC GRAVITY 1.011; UROBILINOGEN,URINE NEGATIVE mg/dL (<2.0)
--- NOTE | 2019-03-19 00:20 | RADIOLOGY REPORT (SQ) ---
EXAM DESCRIPTION: CT CHEST WITH IV CONTRAST COMPLETED DATE/TME: 03/18/2019 22:32 CLINICAL HISTORY: 53 years, Female, pulmonary nodules COMPARISON: 10/02/17. TECHNIQUE: Contiguous axial CT images of the chest. Intravenous contrast: Present. DLP 928 mGy-cm. Images stored on PACS. All CT scanners at this facility use dose modulation, iterative reconstruction, and/or weight based dosing when appropriate to reduce radiation dose to as low as reasonably achievable (ALARA). [facility]: Dose Right [facility]: CareDose [facility]: Dose Right [facility]: Teradose 4D [facility]: [place] LIMITATIONS: None. FINDINGS: Upper abdomen: Partially imaged. The spleen has a 2.1 cm cyst. Thoracic aorta: Unremarkable. Heart: Unremarkable. Mediastinum: No pathologic sized middle mediastinal lymphadenopathy. Tracheobronchial tree: Unremarkable. Lungs: Lobar consolidation: Negative. Pleural effusion: Negative. Pneumothorax: Negative. Other: Negative. Bones: Unremarkable. IMPRESSION: No CT evidence of acute process in the chest. TECHNICAL DOCUMENTATION: Quality ID # [id number]: Final reports with documentation of one or more dose reduction techniques (e.g., Automated exposure control, adjustment of the mA and/or kV according to patient size, use of iterative reconstruction technique) copyright 2010 [employer]- All Rights Reserved
[2019-03-19 02:04] VITALS: BP 142/83
== END 2019-03-19 01:54 | disposition home or self-care (01) ==
LOC: ER 21:21
DX: K21.0 Gastro-esophageal reflux disease with esophagitis (principal); R07.9 Chest pain, unspecified; R10.13 Epigastric pain; I10 Essential (primary) hypertension
CPT/HCPCS: 93005; 99285; 36415; 87086; 83735; 85025; 80053; 81001; 84484; 71046; 71260; 93010; A9270

== ENCOUNTER 2019-03-29 05:13 | Emergency (ER) | payer OTHER ==
[2019-03-29 06:02] LABS: ABSOLUTE EOSINOPHILS # (AUTO) 0.3 10^3/uL (0.0-0.6); ABSOLUTE LYMPHOCYTES (AUTO) 2.3 10^3/uL (0.5-4.7); ABSOLUTE MONOCYTES (AUTO) 0.6 10^3/uL (0.1-1.4); ABSOLUTE NEUT (AUTO) 4.5 10^3/uL (1.7-8.2); BASOPHILS % (AUTO) 0.6 % (0-2); EOSINOPHILS % (AUTO) 3.7 % (0-6); HEMATOCRIT 42.1 % (36.0-47.0); HEMOGLOBIN 13.8 g/dL (12.0-15.5); LYMPHOCYTES % (AUTO) 29.9 % (13-45); MEAN CORPUSCULAR HEMOGLOBIN 28.2 pg (27.0-33.4); MEAN CORPUSCULAR HGB CONC 32.8 g/dL (32.0-36.0); MEAN CORPUSCULAR VOLUME 86 fl (80-97); MONOCYTES % (AUTO) 8.3 % (3-13); PLATELET COUNT 233 10^3/uL (150-450); RED BLOOD COUNT 4.89 10^6/uL (3.72-5.28); RED CELL DISTRIBUTION WIDTH 14.9 % (11.5-14.0); SEGMENTED NEUTROPHILS % (AUTO) 57.5 % (42-78); TOTAL CELLS COUNTED % (AUTO) 100 %; WHITE BLOOD COUNT 7.8 10^3/uL (4.0-10.5)
[2019-03-29 06:21] LABS: ALKALINE PHOSPHATASE 109 U/L (38-126); ANION GAP 6 (5-19); ASPARTATE AMINO TRANSFERASE 15 U/L (14-36); BILIRUBIN,DIRECT 0.1 mg/dL (0.0-0.4); BILIRUBIN,TOTAL 0.4 mg/dL (0.2-1.3); BLOOD UREA NITROGEN 14 mg/dL (7-20); CALCIUM 8.7 mg/dL (8.4-10.2); CARBON DIOXIDE 33 mmol/L (22-30); CHLORIDE 102 mmol/L (98-107); CREATINE KINASE 87 U/L (30-135); GLUCOSE 103 mg/dL (75-110); POTASSIUM 3.5 mmol/L (3.6-5.0); TOTAL PROTEIN 7.3 g/dL (6.3-8.2)
[2019-03-29 06:36] LABS: TROPONIN I < 0.012 ng/mL
[2019-03-29] MEDS ORDERED: LIDOCAINE 2% VISCOUS SOLN 20 ML UDCUP PO ONE (07:02)
[2019-03-29] MEDS ORDERED: MAG HYDROX/AL HYDROX/SIMETH SUSP 30 ML UDCUP PO ONE (07:02)
--- NOTE | 2019-03-29 07:30 | ER Document Report ---
Entered by ANITRA CARUSO SCRIBE 03/29/19 0702 Acting as scribe for:CRUZITO JUAREZ MD ED General - General Chief Complaint: Chest Pain Stated Complaint: CHEST PAIN Time Seen by Provider: 03/29/19 06:46 Primary Care Provider: ABRAM LEA PA-C [Primary Care Provider] - Follow up as needed Mode of Arrival: Ambulatory Information source: Patient Notes: This 53 year old female patient presents to the ED today with complaints of reproducible chest pain that began around 4:00 AM. Patient describes the pain as a tightness in her chest that feels similar to the symptoms she experienced x2 weeks ago. Patient reports that she was prescribed some pills that provided no relief and that she saw her PCP x1 day ago. Patient also reports upper abdominal pain. Was recently prescribed famotidine 20 mg 3 times daily, and omeprazole 40 mg daily. TRAVEL OUTSIDE OF THE [place] IN LAST 30 DAYS: No - Related Data Allergies/Adverse Reactions: No Known Allergies Allergy (Verified 02/28/18 10:34) Home Medications: lisinopril, coreg CR, amlodipine Past Medical History - General Information source: Patient - Social History Smoking Status: Never Smoker Cigarette use (# per day): No Frequency of alcohol use: Rare Family History: Reviewed & Not Pertinent Patient has suicidal ideation: No Patient has homicidal ideation: No - Past Medical History Cardiac Medical History: Reports: Hx Hypertension Musculoskeletal Medical History: Reports Hx Arthritis - Immunizations Immunizations up to date: Yes Hx Diphtheria, Pertussis, Tetanus Vaccination: Yes Review of Systems - Review of Systems Constitutional: No symptoms reported EENT: No symptoms reported Cardiovascular: See HPI, Chest pain - reproducible chest pain Respiratory: No symptoms reported Gastrointestinal: See HPI, Abdominal pain Genitourinary: No symptoms reported Female Genitourinary: No symptoms reported Musculoskeletal: No symptoms reported Skin: No symptoms reported Hematologic/Lymphatic: No symptoms reported Neurological/Psychological: No symptoms reported -: Yes All other systems reviewed and negative Physical Exam - Vital signs Vitals: Temp Pulse Resp BP Pulse Ox 97.7 F 74 22 H 148/86 H 95 03/29/19 05:31 03/29/19 05:31 03/29/19 05:31 03/29/19 05:31 03/29/19 05:31 Interpretation: Normal - General General appearance: Alert In distress: None - HEENT Head: Normocephalic, Atraumatic Eyes: Normal Pupils: PERRL - Respiratory Respiratory status: No respiratory distress Chest status: Nontender, Other - keloid on her distal sternal region Breath sounds: Normal Chest palpation: Normal - Cardiovascular Rhythm: Regular Heart sounds: Normal auscultation Murmur: No - Abdominal Inspection: Morbidly Obese Distension: No distension Bowel sounds: Normal Tenderness: Tender - epigastric tenderness with palpation Organomegaly: No organomegaly - Back Back: Normal, Nontender - Extremities General upper extremity: Normal inspection General lower extremity: Normal inspection - Neurological Neuro grossly intact: Yes - Psychological Associated symptoms: Normal affect, Normal mood - Skin Skin Temperature: Warm Skin Moisture: Dry Skin Color: Normal Course - Re-evaluation Re-evalutation: 03/29/19 08:15 The GI cocktail did make the epigastric chest discomfort go away. I had a long discussion with the patient about GERD, presentations, management, prevention. Things to eat and drink, things not to eat and drink. Elevating the head of the bed either with blocks or with foam wedge under the mattress. She seems to have very little insight into these problems. She is morbidly obese, and lays almost flat on the stretcher which cannot be helping the reflux problem. - Vital Signs Vital signs: Temp Pulse Resp BP Pulse Ox 97.7 F 74 13 142/84 H 100 03/29/19 05:31 03/29/19 05:31 03/29/19 07:01 03/29/19 07:01 03/29/19 07:01 - Laboratory Result Diagrams: 03/29/19 05:32 03/29/19 05:32 Laboratory results interpreted by me: 03/29/19 03/29/19 05:32 05:32 RDW 14.9 H Potassium 3.5 L Carbon Dioxide 33 H - EKG Interpretation by Sc EKG shows normal: Sinus rhythm, [place], Intervals, QRS Complexes. abnormal: ST-T Waves - Borderline inf T abnl's Rate: Normal - 64 Rhythm: NSR When compared to previous EKG there are: No significant change Discharge - Discharge Clinical Impression: GERD (gastroesophageal reflux disease) Qualifiers: Esophagitis presence: esophagitis presence not specified Qualified Code(s): K21.9 - Gastro-esophageal reflux disease without esophagitis Condition: Stable Disposition: HOME, SELF-CARE Additional Instructions: Reflux Disease (GERD) Gastro-Esophageal Reflux Disease (GERD) is caused by stomach acid refluxing back up into the esophagus. The valve at the end of the esophagus may be weak. This is common in persons with a hiatal hernia. GERD symptoms can include indigestion, chest pain, heartburn, or food "sticking." Certain foods, alcohol, and aspirin can make GERD worse. Treatment depends on the severity. Usually, antacids or acid-suppressing medicines are used. When the esophagus is acutely inflamed, the physician will often prescribe membrane-protective drugs such as Carafate. Some patients benefit from medication such as Reglan that tightens the valve at the top of the stomach. Avoid those foods that bring on your symptoms. For many people, these foods are coffee, chocolate, onions, garlic, and carbonated drinks. Don't use alcohol, aspirin, caffeine, or tobacco. Don't eat late at night -- within 4 hours of bedtime. Don't over-eat. If necessary, elevate the head of your bed about 4 inches so that stomach acid will not roll up into your esophagus. Call the doctor if you develop severe chest pain, inability to swallow fluids, fever, or worsening symptoms. For the next few days, take antacids between meals and at bedtime. Continue the famotidine and omeprazole you are prescribed. Elevate the head of your bed. Avoid foods that bring on your symptoms, such as orange juice, pineapple juice, spicy foods, ham, cam, pork, chocolate, peanut butter, bananas, pizza, barbecue, tomato sauce. Follow-up with your primary care provider next week if you do not notice that your symptoms are improving while doing all of the above recommendations. RETURN TO THE EMERGENCY ROOM IF ANY NEW OR WORSENING SYMPTOMS. Referrals: ABRAM LEA PA-C [Primary Care Provider] - Follow up as needed Scribe Attestation: 03/29/19 08:17 I personally performed the services described in the documentation, reviewed and edited the documentation which was dictated to the scribe in my presence, and it accurately records my words and actions. I personally performed the services described in the documentation, reviewed and edited the documentation which was dictated to the scribe in my presence, and it accurately records my words and actions.
[2019-03-29 08:25] VITALS: BP 140/84
--- NOTE | 2019-03-29 08:47 | EKG REPORT ---
SEVERITY:- BORDERLINE ECG - SINUS RHYTHM BORDERLINE T ABNORMALITIES, INFERIOR LEADS : Confirmed by: Yvette Ness 29-Mar-2019 08:47:01
== END 2019-03-29 08:42 | disposition home or self-care (01) ==
LOC: ER 05:13
DX: K21.9 Gastro-esophageal reflux disease without esophagitis (principal); R94.31 Abnormal electrocardiogram [ECG] [EKG]; R07.89 Other chest pain; R10.10 Upper abdominal pain, unspecified; R10.816 Epigastric abdominal tenderness; L91.0 Hypertrophic scar; I10 Essential (primary) hypertension; Z79.899 Other long term (current) drug therapy
CPT/HCPCS: 93005; 36415; 82553; 82550; 85025; 80053; 84484; 93010; J3490; A9270; 99285

== ENCOUNTER 2019-04-17 01:11 | Emergency (ER) | payer OTHER ==
--- NOTE | 2019-04-17 03:25 | ER Document Report ---
ED General - General Chief Complaint: Epigastric Pain Stated Complaint: CHEST PAIN Time Seen by Provider: 04/17/19 03:09 Primary Care Provider: ABRAM LEA PA-C [Primary Care Provider] - Follow up as needed Information source: Patient TRAVEL OUTSIDE OF THE [place] IN LAST 30 DAYS: No - HPI Onset: Other - over the last 30 days or so Onset/Duration: Gradual Quality of pain: Burning Severity: Moderate Pain Level: 3 Associated symptoms: Chest pain, Shortness of breath. denies: Fever, Nausea, Vomiting Exacerbated by: Denies Relieved by: Denies Similar symptoms previously: Yes - has had chest pain and SOB off and on for over a month Recently seen / treated by doctor: Yes - Nicole has been seen in this ER 2 times in the last 30 days for the same Notes: 53 year old female with a history of Obesity, HTN, HLD - Related Data Allergies/Adverse Reactions: No Known Allergies Allergy (Verified 04/17/19 01:30) Home Medications: Lisinopril. Amlodipine. Carvedilol. Vitamin D. Carafate. Omeprazole. Pepcid Past Medical History - General Information source: Patient - Social History Smoking Status: Never Smoker Frequency of alcohol use: None Drug Abuse: None Lives with: Family Family History: Reviewed & Not Pertinent Patient has suicidal ideation: No Patient has homicidal ideation: No - Past Medical History Cardiac Medical History: Reports: Hx Hypertension Denies: Hx Coronary Artery Disease, Hx Heart Attack Pulmonary Medical History: Denies: Hx Asthma, Hx Bronchitis, Hx COPD, Hx Pneumonia Neurological Medical History: Denies: Hx Cerebrovascular Accident, Hx Seizures Renal/ Medical History: Denies: Hx Peritoneal Dialysis Other: Obesity Musculoskeletal Medical History: Reports Hx Arthritis Past Surgical History: Denies: Hx Hysterectomy - Immunizations Immunizations up to date: Yes Hx Diphtheria, Pertussis, Tetanus Vaccination: Yes Review of Systems - Review of Systems Constitutional: denies: Chills, Fever Cardiovascular: Chest pain Respiratory: Short of breath - which is transient and only present when she has the chest pain Gastrointestinal: Other - GERD Symptoms -: Yes All other systems reviewed and negative Physical Exam - Vital signs Vitals: Temp Pulse Resp BP Pulse Ox 98.6 F 61 20 148/88 H 99 04/17/19 01:28 04/17/19 01:28 04/17/19 01:28 04/17/19 01:28 04/17/19 01:28 - Notes Notes: GENERAL: Well-appearing, well-nourished and in no acute distress. Patient is Obese HEAD: Atraumatic, normocephalic. EYES: Pupils equal round and reactive to light, extraocular movements intact, sclera anicteric, conjunctiva are normal. ENT: TMs normal, nares patent, oropharynx clear without exudates. Moist mucous membranes. NECK: Normal range of motion, supple without lymphadenopathy or JVD. LUNGS: Breath sounds clear to auscultation bilaterally and equal. No wheezes rales or rhonchi. HEART: Regular rate and rhythm without murmurs, rubs or gallops. ABDOMEN: Soft, nontender, normoactive bowel sounds. No guarding, no rebound. No masses appreciated. EXTREMITIES: Normal range of motion, no pitting or edema. No clubbing or cyanosis. NEUROLOGICAL: Cranial nerves II through XII grossly intact. Normal speech, normal gait. PSYCH: Normal mood, normal affect. SKIN: Warm, Dry, normal turgor, no rashes or lesions noted. Course - Re-evaluation Re-evalutation: 04/17/19 04:14 The patient has now been to this ER 3 times for the same symptoms. She has been rule out for acute coronary syndrome, PE, Pneumonia on her last visits. She has been told by multipe providers now this is likely GI/GED related. The patient says she has been on anti-acid medications without much relief. The patient feels something else must be going on. That said, the patient followed up with her PCP who referred ther to a GI Doctor but her appointment is yet to be scheduled. The patient tells me she had a Treadmill stress test about 8 years ago but it iwas inconclusive. The patient likely is having GI/GERD issues since a GI cocktail helped in the past and helped again today. Patient has an unremarkable EKG today and another completely negative Trop (patient wanted this to rule out an SC). Patient was told to follow up with her PCP and GI as planned. I explained to the patient the ER could not perform endoscopies and that is likely what she needs. The patient was also told to have an outpatient chemic stress test. - Vital Signs Vital signs: Temp Pulse Resp BP Pulse Ox 98.6 F 61 23 H 144/92 H 100 04/17/19 01:28 04/17/19 01:28 04/17/19 04:01 04/17/19 04:01 04/17/19 04:01 - EKG Interpretation by Me EKG shows normal: Sinus rhythm, [place], Intervals Rate: Normal Rhythm: NSR Additional EKG results interpreted by me: 04/17/19 03:16 intraventricular conduction delay Discharge - Discharge Clinical Impression: Chest pain Qualifiers: Chest pain type: unspecified Qualified Code(s): R07.9 - Chest pain, unspecified GERD (gastroesophageal reflux disease) Qualifiers: Esophagitis presence: without esophagitis Qualified Code(s): K21.9 - Gastro- esophageal reflux disease without esophagitis Condition: Stable Disposition: HOME, SELF-CARE Instructions: Chest Pain of Unclear Cause ([facility]), Reflux Disease (GERD) ([facility]) Additional Instructions: Follow up with your primary care doctor and also follow up with a GI Doctor. Speak with your primary care doctor about a Cardiology referral as you should have an outpatient cardiac stress test. Dr. Askew is a [employer] Property [employer] you can follow up with however. Eat a bland diet to see if this helps with your pains. Continue talking over the counter anti-acid medications. Referrals: ABRAM LEA PA-C [Primary Care Provider] - Follow up as needed
[2019-04-17] MEDS ORDERED: METOCLOPRAMIDE HCL ORAL SOLN 10 MG/10 ML UDCUP PO ONE (03:29)
[2019-04-17] MEDS ORDERED: MAG HYDROX/AL HYDROX/SIMETH SUSP 30 ML UDCUP PO ONE (03:29)
[2019-04-17] MEDS ORDERED: LIDOCAINE 2% VISCOUS SOLN 20 ML UDCUP PO ONE (03:29)
[2019-04-17 05:35] VITALS: BP 146/89
--- NOTE | 2019-04-17 22:38 | EKG REPORT ---
SEVERITY:- ABNORMAL ECG - SINUS RHYTHM NONSPECIFIC INTRAVENTRICULAR CONDUCTION DELAY : Confirmed by: Yvette Ness 17-Apr-2019 22:37:57
== END 2019-04-17 06:04 | disposition home or self-care (01) ==
LOC: ER 01:11
DX: K21.9 Gastro-esophageal reflux disease without esophagitis (principal); R07.9 Chest pain, unspecified; R06.02 Shortness of breath; I10 Essential (primary) hypertension; Z79.899 Other long term (current) drug therapy
CPT/HCPCS: 93005; 99284; 36415; 84484; 93010; J3490; A9270 ×2

== ENCOUNTER 2019-04-27 08:09 | Day surgery (SDC) | payer OTHER ==
[~2019-04-27 08:09] MED LIST changes: -DIPHENHYDRAMINE HCL 50 MG/ML VIAL ONE; -EPINEPHRINE INJ 1 MG/10 ML DISP.SYRIN ONE; -FLUMAZENIL INJ 0.5 MG/5 ML VIAL ONE; -GLUCAGON,HUMAN RECOMB 1 MG INJ ONE; +LIDOCAINE 2% INJ-PF (20 MG/ML) 10 ML AMPUL ONE; -NALOXONE HCL INJ/PF 0.4 MG/1 ML SDV ONE; -ONDANSETRON HCL INJ/PF 4 MG/2 ML SDV ONE; +PROPOFOL INJ 200 MG/20 ML VIAL IV ONE
[2019-04-27 10:29] VITALS: BP 144/50
--- NOTE | 2019-04-27 16:59 | Operative Report ---
Operative Report DATE OF SURGERY: 04/27/19 Operative Report: The risks benefits and alternatives of the procedure explained to the patient in detail and informed consent is obtained,A GIF Olympus video scope was inserted into the patient's mouth and hypopharynx ,the esophagus is identified intubated and insufflated, the scope was then advanced through the esophagus stomach and duodenum, retroflexion maneuver is done ,the esophagus stomach and first and second portions of the duodenum examined PREOPERATIVE DIAGNOSIS: Epigastric pain rule out peptic ulcer disease POSTOPERATIVE DIAGNOSIS: Nodular inflammation noted in the gastric antrum status post biopsy rule out Helicobacter pylori OPERATION: EGD with biopsy SURGEON: CRISTAL ALSTON ANESTHESIA: LMAC TISSUE REMOVED OR ALTERED: As noted above. COMPLICATIONS: None. ESTIMATED BLOOD LOSS: None. INTRAOPERATIVE FINDINGS: As noted above. PROCEDURE: Patient tolerated the procedure well. No immediate postprocedure complications are noted. Patient is discharged in good condition. Discharge date 04/27/2019. Discharge diet: Regular. Discharge activity: Regular. 2 to 3-week follow-up to discuss findings. Patient is instructed to call the office or proceed to the emergency room should there be any further problems or questions.
== END 2019-04-27 10:00 | disposition home or self-care (01) ==
LOC: END 08:09
PROVIDERS: ATTEND Internal Medicine Gastroenterology
DX: K29.50 Unspecified chronic gastritis without bleeding (principal); I10 Essential (primary) hypertension; E78.5 Hyperlipidemia, unspecified; Z79.899 Other long term (current) drug therapy; Z79.51 Long term (current) use of inhaled steroids; J45.909 Unspecified asthma, uncomplicated; E66.9 Obesity, unspecified
CPT/HCPCS: 43239; 88342 ×2; 88305 ×2; 00731; J2704; J3490; 731

== ENCOUNTER 2019-11-06 17:29 | Emergency (ER) | payer OTHER ==
--- NOTE | 2019-11-06 19:00 | ER Document Report ---
ED Medical Screen (RME) - General Chief Complaint: Dizziness Stated Complaint: LIGHTHEADED Time Seen by Provider: 11/06/19 18:29 Primary Care Provider: ABRAM LEA PA-C [Primary Care Provider] - Follow up as needed TRAVEL OUTSIDE OF THE [place] IN LAST 30 DAYS: No - HPI Notes: 11/06/19 18:36 53-year-old female with a history of anxiety and hypertension presents emergency room for dizziness that started last night. Patient states she thought this was her anxiety and took an anxiety medication and then went back to sleep. States she woke up this morning and the dizziness came back. Patient states walking around makes her dizziness worse or getting up fast makes it worse. Patient states she does feel lightheaded" feels like something is wrong my body". States the last time she had that she had hypokalemia. Patient takes 4 different blood pressure medications and states she did take her blood pressure medications today, does not take a diuretic. Denies any chest pain I have greeted and performed a rapid initial assessment of this patient. A comprehensive ED assessment and evaluation of the patient, analysis of test results and completion of the medical decision making process will be conducted by additional ED providers. PHYSICAL EXAMINATION: GENERAL: Well-appearing, well-nourished and in no acute distress. HEAD: Atraumatic, normocephalic. EYES: Pupils equal round extraocular movements intact, conjunctiva are normal. NECK: Normal range of motion CV: s1, s2 regular LUNGS: No respiratory distress - Related Data Allergies/Adverse Reactions: No Known Allergies Allergy (Verified 11/06/19 18:28) Past Medical History - Past Medical History Cardiac Medical History: Reports: Hx Hypertension Denies: Hx Coronary Artery Disease, Hx Heart Attack Pulmonary Medical History: Denies: Hx Asthma, Hx Bronchitis, Hx COPD, Hx Pneumonia Neurological Medical History: Denies: Hx Cerebrovascular Accident, Hx Seizures Renal/ Medical History: Denies: Hx Peritoneal Dialysis Musculoskeltal Medical History: Reports Hx Arthritis Past Surgical History: Denies: Hx Hysterectomy - Immunizations Immunizations up to date: Yes Hx Diphtheria, Pertussis, Tetanus Vaccination: Yes Physical Exam - Vital signs Vitals: Temp Pulse Resp BP Pulse Ox 98.8 F 76 18 165/86 H 100 11/06/19 17:52 11/06/19 17:52 11/06/19 17:52 11/06/19 17:52 11/06/19 17:52 Course - Vital Signs Vital signs: Temp Pulse Resp BP Pulse Ox 98.8 F 76 18 165/86 H 100 11/06/19 17:52 11/06/19 17:52 11/06/19 17:52 11/06/19 17:52 11/06/19 17:52 Doctor's Discharge - Discharge Referrals: ABRAM LEA PA-C [Primary Care Provider] - Follow up as needed
[2019-11-06 19:07] LABS: ABSOLUTE BASOPHILS # (AUTO) 0.1 10^3/uL (0.0-0.2); ABSOLUTE EOSINOPHILS # (AUTO) 0.2 10^3/uL (0.0-0.6); ABSOLUTE LYMPHOCYTES (AUTO) 2.5 10^3/uL (0.5-4.7); ABSOLUTE MONOCYTES (AUTO) 0.7 10^3/uL (0.1-1.4); ABSOLUTE NEUT (AUTO) 4.6 10^3/uL (1.7-8.2); BASOPHILS % (AUTO) 0.8 % (0-2); EOSINOPHILS % (AUTO) 2.7 % (0-6); HEMATOCRIT 42.3 % (36.0-47.0); HEMOGLOBIN 13.9 g/dL (12.0-15.5); LYMPHOCYTES % (AUTO) 30.5 % (13-45); MEAN CORPUSCULAR HEMOGLOBIN 28.4 pg (27.0-33.4); MEAN CORPUSCULAR HGB CONC 32.8 g/dL (32.0-36.0); MEAN CORPUSCULAR VOLUME 86 fl (80-97); MONOCYTES % (AUTO) 8.8 % (3-13); PLATELET COUNT 214 10^3/uL (150-450); RED CELL DISTRIBUTION WIDTH 14.9 % (11.5-14.0); SEGMENTED NEUTROPHILS % (AUTO) 57.2 % (42-78); TOTAL CELLS COUNTED % (AUTO) 100 %; WHITE BLOOD COUNT 8.1 10^3/uL (4.0-10.5)
[2019-11-06 19:15] LABS: AMORPHOUS SEDIMENT,URINE TRACE /HPF; APPEARANCE,URINE CLOUDY; BILIRUBIN,URINE NEGATIVE (NEGATIVE); COLOR,URINE YELLOW; GLUCOSE, URINE NEGATIVE (NEGATIVE); KETONES,URINE NEGATIVE (NEGATIVE); LEUKOCYTE ESTERASE,URINE NEGATIVE (NEGATIVE); NITRITE,URINE NEGATIVE (NEGATIVE); PROTEIN,URINE NEGATIVE (NEGATIVE); URINE SPECIFIC GRAVITY 1.013; UROBILINOGEN,URINE NEGATIVE mg/dL (<2.0)
[2019-11-06 19:33] LABS: ALBUMIN 3.9 g/dL (3.5-5.0); ALKALINE PHOSPHATASE 103 U/L (38-126); ASPARTATE AMINO TRANSFERASE 16 U/L (14-36); BILIRUBIN,TOTAL 0.2 mg/dL (0.2-1.3); BLOOD UREA NITROGEN 13 mg/dL (7-20); CALCIUM 9.1 mg/dL (8.4-10.2); CARBON DIOXIDE 36 mmol/L (22-30); CHLORIDE 100 mmol/L (98-107); CREATINE KINASE 73 U/L (30-135); GLUCOSE 103 mg/dL (75-110); POTASSIUM 3.5 mmol/L (3.6-5.0); TOTAL PROTEIN 7.1 g/dL (6.3-8.2)
[2019-11-06 19:39] LABS: ANION GAP 3 (5-19)
[2019-11-06 19:56] LABS: CREATINE KINASE MB 0.78 ng/mL (<4.55)
[2019-11-06 19:57] LABS: TROPONIN I < 0.012 ng/mL
[2019-11-06 23:23] VITALS: BP 164/80
--- NOTE | 2019-11-07 08:39 | EKG REPORT ---
SEVERITY:- ABNORMAL ECG - SINUS RHYTHM NONSPECIFIC T ABNORMALITIES, INFERIOR LEADS : Confirmed by: Suki Rollins MD 07-Nov-2019 08:37:44
== END 2019-11-07 02:25 | disposition left against medical advice (07) ==
LOC: ER 17:29
DX: Z53.20 Procedure and treatment not carried out because of patient's decision for unspecified reasons (principal); R42 Dizziness and giddiness; F41.9 Anxiety disorder, unspecified; E87.6 Hypokalemia; Z79.899 Other long term (current) drug therapy; I10 Essential (primary) hypertension
CPT/HCPCS: 36415; 80053; 81001; 82550; 82553; 84484; 85025; 93005; 93010; 99281

== ENCOUNTER 2019-11-07 12:15 | Emergency (ER) | payer OTHER ==
--- NOTE | 2019-11-07 13:08 | ER Document Report ---
ED Medical Screen (RME) - General Chief Complaint: Dizziness Stated Complaint: LIGHTHEADED Time Seen by Provider: 11/07/19 12:57 Primary Care Provider: ABRAM LEA PA-C [Primary Care Provider] - Follow up as needed Mode of Arrival: Ambulatory Information source: Patient TRAVEL OUTSIDE OF THE [place] IN LAST 30 DAYS: No - HPI Notes: 11/07/19 13:01 53-year-old female with a history of anxiety and hypertension who was seen in the emergency room yesterday but eloped presents to the emergency room today again for complaints of dizziness that started 2 nights ago. Patient states initially she thought this was related to her anxiety and took some anxiety medication, back to sleep but for the past 2 morning she was woken up with dizziness that remains throughout the day. States that when she is walking around her dizziness does become worse or she gets up quickly makes her dizziness worse. Patient states that she feels lightheaded. Denies any new medications foods or travel. Patient reports that she feels like something is wrong with her body. Patient states that last time she had this issue she had hypokalemia. Patient did receive her EKG and blood work yesterday but did not stay for any results or seeing a provider. Patient currently denies any chest pain shortness of breath nausea vomiting or diarrhea fevers or chills. Patient denies any history of diabetes or blood sugar issues I have greeted and performed a rapid initial assessment of this patient. A comprehensive ED assessment and evaluation of the patient, analysis of test results and completion of the medical decision making process will be conducted by additional ED providers. PHYSICAL EXAMINATION: GENERAL: Well-appearing, well-nourished and in no acute distress. NECK: Normal range of motion CV: s1, s2 regular LUNGS: No respiratory distress - Related Data Allergies/Adverse Reactions: No Known Allergies Allergy (Verified 11/07/19 12:55) Past Medical History - Past Medical History Cardiac Medical History: Reports: Hx Hypertension Denies: Hx Coronary Artery Disease, Hx Heart Attack Pulmonary Medical History: Denies: Hx Asthma, Hx Bronchitis, Hx COPD, Hx Pneumonia Neurological Medical History: Denies: Hx Cerebrovascular Accident, Hx Seizures Renal/ Medical History: Denies: Hx Peritoneal Dialysis Musculoskeltal Medical History: Reports Hx Arthritis Past Surgical History: Denies: Hx Hysterectomy - Immunizations Immunizations up to date: Yes Hx Diphtheria, Pertussis, Tetanus Vaccination: Yes Physical Exam - Vital signs Vitals: Temp Pulse Resp BP Pulse Ox 98.4 F 74 18 170/82 H 94 11/07/19 12:21 11/07/19 12:21 11/07/19 12:21 11/07/19 12:21 11/07/19 12:21 Course - Vital Signs Vital signs: Temp Pulse Resp BP Pulse Ox 98.4 F 74 18 170/82 H 94 11/07/19 12:21 11/07/19 12:21 11/07/19 12:21 11/07/19 12:21 11/07/19 12:21 Doctor's Discharge - Discharge Referrals: ABRAM LEA PA-C [Primary Care Provider] - Follow up as needed
[2019-11-07 13:44] LABS: ABSOLUTE BASOPHILS # (AUTO) 0.1 10^3/uL (0.0-0.2); ABSOLUTE EOSINOPHILS # (AUTO) 0.2 10^3/uL (0.0-0.6); ABSOLUTE LYMPHOCYTES (AUTO) 2.1 10^3/uL (0.5-4.7); ABSOLUTE MONOCYTES (AUTO) 0.6 10^3/uL (0.1-1.4); ABSOLUTE NEUT (AUTO) 5.2 10^3/uL (1.7-8.2); BASOPHILS % (AUTO) 0.7 % (0-2); EOSINOPHILS % (AUTO) 2.7 % (0-6); HEMATOCRIT 43.6 % (36.0-47.0); HEMOGLOBIN 14.3 g/dL (12.0-15.5); MEAN CORPUSCULAR HEMOGLOBIN 28.2 pg (27.0-33.4); MEAN CORPUSCULAR HGB CONC 32.8 g/dL (32.0-36.0); MEAN CORPUSCULAR VOLUME 86 fl (80-97); MONOCYTES % (AUTO) 7.6 % (3-13); PLATELET COUNT 226 10^3/uL (150-450); RED BLOOD COUNT 5.05 10^6/uL (3.72-5.28); RED CELL DISTRIBUTION WIDTH 14.8 % (11.5-14.0); TOTAL CELLS COUNTED % (AUTO) 100 %; WHITE BLOOD COUNT 8.2 10^3/uL (4.0-10.5)
--- NOTE | 2019-11-07 13:55 | RADIOLOGY REPORT (SQ) ---
EXAM DESCRIPTION: CHEST SINGLE VIEW IMAGES COMPLETED DATE/TIME: 11/07/2019 1:43 pm REASON FOR STUDY: LH COMPARISON: 03/18/2019 EXAM PARAMETERS: NUMBER OF VIEWS: One view. TECHNIQUE: Single frontal radiographic view of the chest acquired. RADIATION DOSE: NA LIMITATIONS: None. FINDINGS: LUNGS AND PLEURA: No opacities, masses or pneumothorax. No pleural effusion. MEDIASTINUM AND HILAR STRUCTURES: No masses. Contour normal. HEART AND VASCULAR STRUCTURES: Heart normal in size. Normal vasculature. BONES: No acute findings. HARDWARE: None in the chest. OTHER: No other significant finding. IMPRESSION: NO ACUTE RADIOGRAPHIC FINDING IN THE CHEST. TECHNICAL DOCUMENTATION: JOB ID: [id number] 2010 [employer]- All Rights Reserved Reading location - IP/workstation name: [email or web address]
[2019-11-07 14:02] LABS: ALBUMIN 4.3 g/dL (3.5-5.0); ALKALINE PHOSPHATASE 132 U/L (38-126); ANION GAP 5 (5-19); ASPARTATE AMINO TRANSFERASE 18 U/L (14-36); BILIRUBIN,TOTAL 0.5 mg/dL (0.2-1.3); BLOOD UREA NITROGEN 11 mg/dL (7-20); CALCIUM 9.3 mg/dL (8.4-10.2); CARBON DIOXIDE 33 mmol/L (22-30); CHLORIDE 101 mmol/L (98-107); GLUCOSE 91 mg/dL (75-110); POTASSIUM 3.6 mmol/L (3.6-5.0); TOTAL PROTEIN 7.5 g/dL (6.3-8.2)
[2019-11-07] MEDS ORDERED: MECLIZINE HCL 25 MG TABLET PO ONE (18:40)
--- NOTE | 2019-11-07 18:46 | ER Document Report ---
ED General - General Chief Complaint: Dizziness Stated Complaint: LIGHTHEADED Time Seen by Provider: 11/07/19 12:57 Primary Care Provider: ABRAM LEA PA-C [Primary Care Provider] - Follow up as needed Mode of Arrival: Ambulatory TRAVEL OUTSIDE OF THE [place] IN LAST 30 DAYS: No - HPI Notes: Chief complaint: Weak and dizzy History of present illness: 53-year-old female followed by Abram Lea PA-C with history of hypertension notes 2-day history of vague sensation of mild dizziness which she describes principally as unsteadiness and occasional mild sensation of the room spinning. No vomiting. No fever. No focal weakness. No chest pain. No shortness of breath. No bradycardia dysuria although she does have some urinary frequency. No known exposure to COVID virus. No travel outside area. Eating and drinking normally. No diarrhea. No skin rashes. No headache. Patient remains on her usual medications with no recent changes. Says she is fully compliant with her medication. Patient came here yesterday and apparently waited a long time without being seen although she did have labs and an EKG at that time. We note she had 2- troponins yesterday and no acute changes on her EKG. - Related Data Allergies/Adverse Reactions: No Known Allergies Allergy (Verified 11/07/19 12:55) Past Medical History - General Information source: Patient, [facility] Records - Social History Smoking Status: Never Smoker Chew tobacco use (# tins/day): No Frequency of alcohol use: None Drug Abuse: None Family History: Reviewed & Not Pertinent - Past Medical History Cardiac Medical History: Reports: Hx Hypertension Denies: Hx Coronary Artery Disease, Hx Heart Attack Pulmonary Medical History: Denies: Hx Asthma, Hx Bronchitis, Hx COPD, Hx Pneumonia Neurological Medical History: Denies: Hx Cerebrovascular Accident, Hx Seizures Endocrine Medical History: Denies: Hx Diabetes Mellitus Type 1, Hx Diabetes Mellitus Type 2 Renal/ Medical History: Denies: Hx Peritoneal Dialysis Musculoskeletal Medical History: Reports Hx Arthritis Past Surgical History: Denies: Hx Hysterectomy - Immunizations Immunizations up to date: Yes Hx Diphtheria, Pertussis, Tetanus Vaccination: Yes Review of Systems - Review of Systems Notes: Constitutional: Negative for fever. HENT: Negative for sore throat. Eyes: Negative for visual changes. Cardiovascular: Negative for chest pain. Respiratory: Negative for shortness of breath. Gastrointestinal: Negative for abdominal pain, vomiting or diarrhea. Genitourinary: Negative for dysuria. Musculoskeletal: Negative for back pain. Skin: Negative for rash. Neurological: Negative for headaches, focal weakness or numbness. 10 point ROS negative except as marked above and in HPI. Physical Exam - Vital signs Vitals: Temp Pulse Resp BP Pulse Ox 98.4 F 74 18 170/82 H 94 11/07/19 12:21 11/07/19 12:21 11/07/19 12:21 11/07/19 12:21 11/07/19 12:21 - Notes Notes: GENERAL: Obese female approximately stated age appearing in no acute distress. SKIN: Good turgor no rashes. HEAD: Normocephalic atraumatic. EYES: PERRLA. EOMI. Conjunctivae and sclerae clear. EARS: CANALS AND TMS CLEAR. NOSE: CLEAR. MOUTH: Moist mucosa. Good dentition. No stridor or edema. No drooling. NECK: Supple. No masses or thyromegaly. No adenopathy. Carotids 2+ without bruits. No JVD. BACK: Symmetrical without tenderness. CHEST: Respirations unlabored. Breath sounds clear and symmetrical. HEART: Regular rhythm. No murmur gallop or rub. ABDOMEN: Obese. Soft nontender without masses, organomegaly or rebound. Bowel sounds normally active. No bruits. GENITALIA: Deferred. EXTREMITIES: Trace bilateral pretibial edema. No calf tenderness. Cap refill less than 1.5 seconds. Dorsalis pedis and posterior tibial pulses 3+ and symmetrical. NEUROLOGICAL: GCS 15. Alert and oriented x3. Normal gait. Fluent speech. Cranial nerves II through XII intact. Sensorimotor and cerebellar normal. Normal tone. PSYCHIATRIC: Appropriate affect. Course - Re-evaluation Re-evalutation: 11/07/19 18:45 Repeat troponin again today is normal. Urinalysis is unremarkable. Her comprehensive metabolic profile and CBC are unremarkable. EKG shows normal sinus rhythm with nonspecific T wave changes unchanged from prior tracing. I told patient that it is likely she has mild vertigo probably related to viral syndrome. She appears very stable for outpatient follow-up with primary care physician and I am going to treat her empirically with meclizine. 11/07/19 18:47 Findings, clinical impression and plan of treatment have been discussed with patient/family. Understanding of current findings and recommendations has been acknowledged by them and there is agreement regarding disposition and follow-up. - Vital Signs Vital signs: Temp Pulse Resp BP Pulse Ox 98.4 F 64 18 143/85 H 94 11/07/19 12:21 11/07/19 16:11 11/07/19 12:21 11/07/19 16:11 11/07/19 12:21 - Laboratory Result Diagrams: 11/07/19 13:14 11/07/19 13:14 Laboratory results interpreted by me: 11/07/19 11/07/19 13:14 13:14 RDW 14.8 H Carbon Dioxide 33 H Alkaline Phosphatase 132 H - EKG Interpretation by Me Additional EKG results interpreted by me: 11/07/19 18:45 Twelve-lead EKG from 1544 hrs. reviewed contemporaneously by me showing normal sinus rhythm with a rate of 63 and a normal QRS axis of +32 degrees with normal intervals. She has some nonspecific T wave changes present the tracing is compared to a prior study from 11/06/2019 and shows no significant interval changes. Indication for current study: Dizziness and weakness. Discharge - Discharge Clinical Impression: Vertigo Condition: Stable Disposition: HOME, SELF-CARE Instructions: Vertigo ([facility]), Meclizine ([facility]) Additional Instructions: Return here as needed for new or worsening symptoms: Pain that is worsening or unimproved Uncontrolled vomiting High fever or shaking chills Overall worsening Follow-up with your primary care provider next 2 to 3 days. Prescriptions: Meclizine HCl [Antivert 25 mg Tablet] 25 mg PO TID PRN #21 tablet PRN Reason: Referrals: ABRAM LEA PA-C [Primary Care Provider] - Follow up as needed
[2019-11-07 19:32] VITALS: BP 134/91
--- NOTE | 2019-11-07 20:07 | EKG REPORT ---
SEVERITY:- BORDERLINE ECG - SINUS RHYTHM BORDERLINE T WAVE ABNORMALITIES : Confirmed by: Suki Rollins MD 07-Nov-2019 20:05:53
== END 2019-11-07 19:32 | disposition home or self-care (01) ==
LOC: ER 12:15
DX: R42 Dizziness and giddiness (principal); I10 Essential (primary) hypertension
CPT/HCPCS: 93005; 99284; 36415; 82962; 85025; 80053; 84484; 71045; 93010; A9270

== ENCOUNTER 2020-01-21 07:59 | Day surgery (SDC) | payer OTHER ==
[~2020-01-21 07:59] MED LIST changes: -LIDOCAINE 2% INJ-PF (20 MG/ML) 10 ML AMPUL ONE
--- NOTE | 2020-01-21 10:48 | Operative Report ---
Operative Report DATE OF SURGERY: 01/21/20 Operative Report: The risk, benefits and alternatives of the procedure including the risks of bleeding, perforation requiring surgery have been explained to the patient in detail and informed consent has been obtained. Patient is taken back to the endoscopy suite and placed in left, lateral decubital position. Timeout was called. Propofol medication is administered. Rectal examination is done which did not reveal any masses, tears or fissures. An Olympus videoscope was introduced into the patient's rectum. Scope was then carefully advanced all the way to the cecum. Cecum was identified by the usual anatomical landmarks including the ileocecal valve as well as the appendiceal office. Photodocumentation is obtained. Scope was then sequentially pulled back via the various segments of the colon including the ascending colon, hepatic fracture, transverse colon, splenic flexure, descending colon finding to the rectosigmoid portions of the colon. Retroflexion maneuvers performed. PREOPERATIVE DIAGNOSIS: Colorectal cancer screening POSTOPERATIVE DIAGNOSIS: Sessile sigmoid polyp status post biopsy. Random colon biopsies right side colon Status post biopsy OPERATION: Colonoscopy with biopsy SURGEON: CRISTAL ALSTON ANESTHESIA: LMAC TISSUE REMOVED OR ALTERED: As noted above. COMPLICATIONS: None. ESTIMATED BLOOD LOSS: None. INTRAOPERATIVE FINDINGS: As noted above. PROCEDURE: Patient tolerated the procedure well. No immediate postprocedure complications are noted. Patient is discharged in good condition. Discharge date 01/21/2020. Discharge diet: Regular. Discharge activity: Regular. 2 to 3-week follow-up to discuss findings. Patient is instructed call the office or proceed to the emergency room should there be any further problems or questions. Wait on the pathology. 10-year surveillance colonoscopy if negative.
[2020-01-21 11:19] VITALS: BP 127/65
== END 2020-01-21 11:15 | disposition home or self-care (01) ==
LOC: END 07:59
PROVIDERS: ATTEND Internal Medicine Gastroenterology
DX: Z12.11 Encounter for screening for malignant neoplasm of colon (principal); Z12.12 Encounter for screening for malignant neoplasm of rectum; D12.6 Benign neoplasm of colon, unspecified; Z03.818 Encounter for observation for suspected exposure to other biological agents ruled out; I10 Essential (primary) hypertension; E78.5 Hyperlipidemia, unspecified; Z79.899 Other long term (current) drug therapy; Z79.51 Long term (current) use of inhaled steroids; Z12.6 Encounter for screening for malignant neoplasm of bladder; E66.9 Obesity, unspecified; E66.01 Morbid (severe) obesity due to excess calories; Z68.43 Body mass index [BMI] 50.0-59.9, adult
CPT/HCPCS: 45380; 88305 ×2; U0003; J2704; C9803; 812; 87635